=== PATIENT | female | born 1965 | race Caucasian/White ===

== ENCOUNTER 2018-09-22 12:12 | Emergency (ER) | payer BC ==
--- NOTE | 2018-09-22 13:09 | ED ---
HPI Chest Pain - HPI Summary HPI Summary: A 52 y/o female brought in by [facility] presents to [facility] with a chief complaint of chest pain. She reports that she was at school when at 09:45 she felt a sharp pain in her left chest lasting for two minutes. She claims that she was walking from her office to a classroom with a student when this happened. She felt off so she went to the school nurse and her BP was 158/118, which is high for her. She then was walking around again helping another student , when the nurse saw her again, measured her BP again and it had decreased. She claims that she then had a sharp quick pain in her left armpit and the nurse recommended she come to the ED. She was going to get a ride from a coworker, but the after school program coordinator said that she needed to come meet with her. On her way to meet with the after school program coordinator she felt lightheaded, nauseous and a pressure in her head and neck area. Then she called an ambulance. She denies any nausea, dizziness, sweating or vomiting at the time. She states that now she feels tired and has head pressure but denies any CP or armpit pain, rash or edema. She claims that when walking she usually doesnt get chest pain. She claims that when she does get chest pain it seems to come out of nowhere. She denies a Hx of HTN, DM and cardiac disease although she has a FHx of HTN, DM and cardiac disease. She claims that she has been tested for her gallbladder but those results have been negative. She denies a Hx of ulcers although she has an ovarian cyst. She reports taking valacyclovir, amitriptyline, Zyrtec and vitamins. She denies smoking or drug use but uses EtOH occasionally. Vital signs while in room HR: 71 bpm, O2 Sat: 97, BP: 157/96. - History of Current Complaint Chief Complaint: EDChestPainROMI Time Seen by Provider: 09/22/18 12:36 Hx Obtained From: Patient, EMS Onset/Duration: Started Hours Ago, Resolved Time of Onset: 09:45 - today Timing: Intermittent, Lasting Minutes Initial Severity: Severe Current Severity: None Pain Intensity: 0 Pain Scale Used: 0-10 Numeric Chest Pain Location: Diffuse Chest Pain Radiates: Yes Chest Pain Radiates To:: Other - left armpit Character: Sharp/Stabbing Aggravating Factor(s): Nothing Alleviating Factor(s): Nothing Associated Signs and Symptoms: Positive: Lightheadedness, Other: - head and neck pressure. Negative: Dizziness, Swelling, Nausea, Calf Pain/Swelling, Vomiting, Edema - Allergy/Home Medications Allergies/Adverse Reactions: Allergies Allergy/AdvReac Type Severity Reaction Status Date / Time amoxicillin Allergy Vomiting Verified 09/22/18 12:27 tetracycline Allergy Vomiting Verified 09/22/18 12:27 Home Medications: Home Medications Amitriptyline TAB* [Elavil TAB*] 10 mg PO BEDTIME 09/22/18 [History Confirmed ] Cetirizine* [ZyrTEC 10 MG TAB*] 10 mg PO DAILY 09/22/18 [History Confirmed 09/22] Cholecalciferol TAB* [Vitamin D TAB*] 400 unit PO DAILY 09/22/18 [History Confirmed 09/22/18] Cyanocobalamin (Vitamin B-12) [Vitamin B-12] 1,000 mcg PO DAILY 09/22/18 [ History Confirmed 09/22/18] Valacyclovir HCl [Valacyclovir] 500 mg PO DAILY 09/22/18 [History Confirmed ] PMH/Surg Hx/FS Hx/Imm Hx Endocrine/Hematology History: Denies: Hx Diabetes Cardiovascular History: Denies: Hx Hypertension Sensory History: Denies: Hx Deafness - Surgical History Surgery Procedure, Year, and Place: none reported Infectious Disease History: No Infectious Disease History: Denies: Traveled Outside the [place] in Last 30 Days - Family History Known Family History: Positive: Cardiac Disease, Hypertension, Diabetes - Social History Alcohol Use: Occasionally Substance Use Type: Reports: None Smoking Status (MU): Never Smoked Tobacco Review of Systems Positive: Fatigue Positive: Chest Pain - [employer]ING [employer] Negative: Vomiting, Nausea Neurological: Negative - dizziness, Other - positive: lightheadedness, head and neck pressure All Other Systems Reviewed And Are Negative: Yes Physical Exam - Summary Physical Exam Summary: Appearance: Well appearing, no pain distress Skin: warm, dry, reflects adequate perfusion Head/face: normal Eyes: EOMI, MELVI ENT: normal Neck: supple, non-tender Respiratory: CTA, breath sounds present Cardiovascular: RRR, pulses symmetrical Abdomen: non-tender, soft Musculoskeletal: normal, strength/ROM intact Neuro: normal, sensory motor intact, A&Ox3 Triage Information Reviewed: Yes Vital Signs On Initial Exam: Initial Vitals Temp Pulse Resp BP Pulse Ox 99.3 F 64 12 157/96 99 09/22/18 12:24 09/22/18 12:24 09/22/18 12:24 09/22/18 12:24 09/22/18 12:24 Vital Signs Reviewed: Yes Diagnostics - Vital Signs Vital Signs Temp Pulse Resp BP Pulse Ox 09/22/18 12:44 70 18 96 09/22/18 12:24 99.3 F 66 18 157/96 100 - Laboratory Result Diagrams: 09/22/18 14:04 09/22/18 14:04 Lab Statement: Any lab studies that have been ordered have been reviewed, and results considered in the medical decision making process. - Radiology CXR Radiology Interpretation Completed By: Radiologist Summary of Radiographic Findings: NO EVIDENCE FOR ACUTE DISEASE. ED physician has reviewed this imaging report. - EKG 13:17 Cardiac Rate: Bradycardia - 57 bpm EKG Rhythm: Sinus Bradycardia Summary of EKG Findings: Sinus bradycardia at 57 bpm, no acute changes Re-Evaluation - Re-Evaluation First Eval Re-Evaluation Time: 15:04 Change: Unchanged Comment: Explained that she will have a second troponin. Second Eval Re-Evaluation Time: 17:30 Change: Unchanged Comment: Discussed results and plan for discharge Chest Pain Course/Dx - Course Course Of Treatment: A 52 y/o female brought in by [facility] presents to [facility] with a chief complaint of chest pain. She reports that she was at school when at 09:45 she felt a sharp pain in her left chest lasting for two minutes. The physical exam was unremarkable. CXR impression: NO EVIDENCE FOR ACUTE DISEASE. EKG at 13:17 showed sinus bradycardia at 57 bpm with no acute changes. Blood work obtained. The patient will be discharged with prescriptions for Flexeril and Motrin. Strict return precautions were given. The patient is agreeable with this plan. - Chest Pain Differential Diagnosis/HQI/PQRI: Angina, Chest Wall, Lower Respiratory Infection - Diagnoses Provider Diagnoses: Atypical chest pain Discharge - Sign-Out/Discharge Documenting (check all that apply): Patient Departure - DC Patient Received Moderate/Deep Sedation with Procedure: No - Discharge Plan Condition: Stable Disposition: HOME Prescriptions: Cyclobenzaprine TAB* [Flexeril 10 MG TAB*] 10 mg PO TID PRN #15 tab MDD 3 PRN Reason: Pain Ibuprofen TAB* [Motrin TAB* 600 MG] 600 mg PO Q8H PRN #15 tab MDD 3 PRN Reason: Pain Patient Education Materials: Chest Pain (DC) Referrals: Kenn Love MD [Primary Care Provider] - 3 Days Additional Instructions: Return to the ED if you experience any new or worsening symptoms. - Billing Disposition and Condition Condition: STABLE Disposition: Home - Attestation Statements Document Initiated by Violaibe: Yes Documenting Scribe: Ronny Ibanez Provider For Whom Janel is Documenting (Include Credential): Oren Carlos MD Scribe Attestation: Ronny Braxton scribed for Oren Carlos MD on 09/22/18 at 1759. Scribe Documentation Reviewed: Yes Provider Attestation: The documentation as recorded by the Ronny chaudhry accurately reflects the service I personally performed and the decisions made by me, Oren Carlos MD Status of Scribe Document: Viewed
[2018-09-22 14:14] LABS: ABS Basophils 0.1 10^3/ul (0-0.2); ABS Eosinophils 0.3 10^3/ul (0-0.6); ABS Lymphocytes 2.2 10^3/ul (1.0-4.8); ABS Monocytes 0.5 10^3/ul (0-0.8); ABS Neutrophils 3.7 10^3/ul (1.5-7.7); ABS Nucleated RBC 0 10^3/ul; Hematocrit 41 % (33-41); Hemoglobin 13.9 g/dL (12.0-16.0); Mean Corpuscular HGB Conc 34 g/dL (31-36); Mean Corpuscular Hemoglobin 29 pg (27-31); Mean Corpuscular Volume 87 fL (80-97); Mean Platelet Volume 8.3 fL (7.4-10.4); Nucleated Red Blood Cells % 0.1; Platelet Count 291 10^3/uL (150-450); Red Blood Count 4.74 10^6 /uL (3.70-4.87); Red Cell Distribution Width 13 % (10.5-15); White Blood Count 6.8 10^3/uL (3.5-10.8)
[2018-09-22 14:28] LABS: Activated Partial Thrombo Time 25.8 seconds (26.0-36.3); INR 0.93 (0.77-1.02)
[2018-09-22 14:31] LABS: Albumin 4.4 g/dL (3.2-5.2); Albumin/Globulin Ratio 1.6 (1-3); BUN/Creatinine Ratio 14.7 (8-20); Calcium 9.3 mg/dL (8.6-10.3); EGFR African American 110.4 (>60); EGFR Non-African American 91.2 (>60); Globulin 2.7 g/dL (2-4); Potassium 3.9 mmol/L (3.5-5.0); Total Bilirubin 0.5 mg/dL (0.2-1.0); Total Protein 7.1 g/dL (6.4-8.9)
[2018-09-22 14:39] LABS: HCG Pregnancy 3.03 mIU/mL
[2018-09-22 17:28] VITALS: BP 134/86
== END 2018-09-22 17:44 | disposition home or self-care (01) ==
LOC: ED 12:12
DX: R07.89 Other chest pain (principal); R42 Dizziness and giddiness; Z88.0 Allergy status to penicillin
CPT/HCPCS: 36415; 71045; 80053; 83690; 84484; 84702; 85025; 85379; 85610; 85730; 93005; 99282